=== PATIENT | male | born 1955 | race Caucasian/White ===

== ENCOUNTER → 2017-03-08 | Outpatient (CLI) | payer OTHER ==
[2017-03-08 11:01] LABS: ALBUMIN 4.1 GM/DL (3.2-5.2); ALBUMIN/GLOBULIN RATIO 1.21 (1.00-1.93); BILIRUBIN,TOTAL 0.9 MG/DL (0.2-1.0); CALCIUM LEVEL 9.1 MG/DL (8.8-10.2); CREATININE FOR GFR 1.57 MG/DL (0.70-1.30); GLOMERULAR FILTRATION RATE 48.2 (>49); POTASSIUM SERUM 3.9 MEQ/L (3.5-5.1); TOTAL PROTEIN 7.5 GM/DL (6.4-8.2)
== END ==
LOC: M LAB 09:40
PROVIDERS: ATTEND Physician Assistant
DX: R73.01 Impaired fasting glucose (principal)

== ENCOUNTER → 2017-05-17 | Outpatient (CLI) | payer OTHER ==
--- NOTE | 2017-05-17 12:00 | REP ---
Clinical: Chronic medical renal disease. Technique: Real time sauer scale and color evaluation using curved array transducer. Findings: Right kidney measures 12.6 x 5.5 x 6.2 cm and is normal in reniform shape with increased parenchymal echogenicity, increased central sinus fat, and scattered cysts measuring up to 16 mm in the lower pole. Findings are consistent with chronic medical renal disease and there is no evidence for hydronephrosis, nephrolithiasis, or mass lesion. Left kidney measures 10.5 x 5.6 x 5.8 cm and is normal in reniform shape with increased parenchymal echogenicity, increased central sinus fat, and scattered cysts measuring up to 11 mm in the mid pole region. Findings are consistent with chronic medical renal disease and there is no evidence for hydronephrosis or nephrolithiasis. A 1.7 x 2.0 x 1.6 cm echogenic lesion in the mid/upper pole region is concerning for mass versus normal parenchymal contour abnormality. Prostate gland measures 4.7 x 4.6 x 3.6 cm (41 ml). Impression: 1. Evidence for chronic medical renal disease with few bilateral cysts and no evidence for hydronephrosis. 2. Possible 2 cm left renal mass warrants pre and postcontrast CT or MRI for further investigation. Signed by Jitendra Patino MD 05/17/2017 11:52 A
== END ==
LOC: M RAD 10:36
PROVIDERS: ATTEND Internal Medicine Nephrology
DX: N18.3 Chronic kidney disease, stage 3 (moderate) (principal); I12.9 Hypertensive chronic kidney disease with stage 1 through stage 4 chronic kidney disease, or unspecified chronic kidney disease

== ENCOUNTER → 2017-05-31 | Outpatient (CLI) | payer OTHER ==
[~2017-05-31] MED LIST: ISOVUE-370 76% 100ML VIAL (Q9967) As Ordered ONE
--- NOTE | 2017-05-31 13:53 | REP ---
CT abdomen pelvis multiphasic scanning: Study is initially performed without IV contrast. This is performed by multiphase scanning after IV contrast, initially during the arterial phase of enhancement and later during the delayed equilibrium phase of enhancement. Comparisons are the renal ultrasound dated 05/17/[address] dated 12/10/2013. There is a 2 cm mass arising from the mid pole of the left kidney anterolaterally extending through the renal cortex into the subcapsular space, similar to the recent ultrasound, but not present on the previous CT dated 12/10/2013. Renal carcinoma is a primary diagnostic consideration. Follow-up is recommended. There are no other solid renal masses. There are a few small renal cortical cysts. There is no hydronephrosis. There are no renal calculi. The ureters are unremarkable. There is no bladder mass. The prostate is moderately enlarged and effaces the bladder base. The visualized lung ascencio are unremarkable. There are a few small hepatic cyst. Hepatic parenchyma is otherwise unremarkable. The gallbladder, pancreas and spleen are unremarkable. The adrenals and abdominal aorta are unremarkable. There is no retroperitoneal adenopathy. There is descending colon and sigmoid colon diverticulosis without diverticulitis. This is unchanged. Pelvis: The bladder is unremarkable except that the bas is mildly effaced by the slightly enlarged prostate. There is no adenopathy or ascites. There are no lytic, blastic or destructive skeletal changes. There is advanced degenerative disc disease in the lumbar spine at L5 S1. Impression: There is a 2 cm solid mass arising from the left kidney supero laterally extending through the renal cortex into the subcapsular space concerning for renal neoplasm. There is no adenopathy or ascites. No lytic, blastic or destructive skeletal lesions. No bladder mass. No hydronephrosis. There is descending colon and sigmoid colon diverticulosis without diverticulitis. The prostate is mildly enlarged and effaces the bladder base. Bilateral renal cortical cysts are incidentally noted. Signed by Brandon Canseco MD 05/31/2017 01:42 P
== END ==
LOC: M RAD 11:24
PROVIDERS: ATTEND Internal Medicine Nephrology
DX: D41.02 Neoplasm of uncertain behavior of left kidney (principal); R31.29 Other microscopic hematuria; K57.30 Diverticulosis of large intestine without perforation or abscess without bleeding; N40.1 Benign prostatic hyperplasia with lower urinary tract symptoms; N28.1 Cyst of kidney, acquired
CPT/HCPCS: 74178; Q9967

== ENCOUNTER → 2017-08-15 | Outpatient (CLI) | payer OTHER ==
[~2017-08-15] MED LIST changes: +ATOR1TAB19 PO; +BENT10CA PO; +DIAZ2TAB PO; +GABA-282 PO; -ISOVUE-370 76% 100ML VIAL (Q9967) As Ordered ONE; +LEXA1TAB PO; +LOSA100T8 PO; +OMEP40CA2 PO; +OXYC1TAB23 PO; +TIZA4CAP3 PO
[2017-08-15 11:03] LABS: INR 0.93
--- NOTE | 2017-08-16 06:17 | REP ---
CHEST X-RAY: CLINICAL: Preoperative assessment. Renal mass. TECHNIQUE: PA and lateral. COMPARISON: 04/28/2014. FINDINGS: Mediastinum and cardiac silhouette are normal. Lung ascencio demonstrate chronic appearing interstitial change. No focal consolidation, effusion or pneumothorax. Skeletal structures are intact. IMPRESSION: No acute cardiopulmonary process or focal consolidation. Signed by Jitendra Patino MD 08/21/2017 12:07 A
--- NOTE | 2017-08-16 09:14 | ECGEPIP ---
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
== END ==
LOC: M LAB 09:37
PROVIDERS: ATTEND Urology
DX: R31.29 Other microscopic hematuria (principal)

== ENCOUNTER 2017-08-16 05:44 | Inpatient (IN) | payer OTHER ==
[2017-08-16] VITALS (11 sets, daily range): BP systolic 129–144; BP diastolic 78–94
[~2017-08-16] VITALS: Ht 175.3 cm; Wt 83.8 kg
[2017-08-16] MEDS ORDERED: LR 1,000 ML IV SCH ×2 (06:00→12:15)
[2017-08-16] MEDS ORDERED: LIDOCAINE 1% SDV INJ 30 ML VIAL As Ordered ONE (07:03)
[2017-08-16] MEDS ORDERED: BUPIVACAINE HCL 0.25% 30 ML VIAL As Ordered ONE (07:03)
[2017-08-16] MEDS ORDERED: ROCURONIUM BROMIDE 50 MG/5 ML VIAL As Ordered ONE ×2 (07:12→08:09)
[2017-08-16] MEDS ORDERED: fentaNYL 100 MCG/2 ML INJECTION (J3010) As Ordered ONE ×2 (07:12→08:08)
[2017-08-16] MEDS ORDERED: PROPOFOL 200 MG/20 ML VIAL As Ordered ONE ×2 (07:12→08:09)
[2017-08-16] MEDS ORDERED: MIDAZOLAM INJ 2 MG/2 ML VIAL (J2250) As Ordered ONE (07:13)
[2017-08-16] MEDS: NS 1,000 ML IV SCH ×3 (07:41→22:14)
[2017-08-16] MEDS ORDERED: ONDANSETRON 4MG/2ML VIAL (J2405) IV PRN ×2 (07:45→12:15)
[2017-08-16] MEDS ORDERED: ACETAMINOPHEN TAB 650MG DOSE (2X325MG) PO PRN (07:45)
[2017-08-16] MEDS ORDERED: dexameTHASONE 4 MG/ML 1ML VIAL (J1100) As Ordered ONE (08:24)
[2017-08-16] MEDS ORDERED: MANNITOL 25% 12.5 GM/50 ML VIAL (J2150) As Ordered ONE (08:43)
[2017-08-16] MEDS ORDERED: ePHEDrine SULFATE 25 MG/5 ML(5MG/ML) SYRINGE As Ordered ONE (08:50)
[2017-08-16] MEDS ORDERED: FILTER 1.2 MICRON EXT SET (ADULT TPN & MANNITOL) XX ONE (09:24)
[2017-08-16] MEDS ORDERED: ONDANSETRON 4MG/2ML VIAL (J2405) As Ordered ONE (09:56)
[2017-08-16] MEDS ORDERED: NEOSTIGMINE 10 MG/10 ML VIAL (J2710) As Ordered ONE (09:56)
[2017-08-16] MEDS ORDERED: GLYCOPYRROLATE INJ 0.2 MG/ML 2 ML VIAL As Ordered ONE (09:56)
[2017-08-16] MEDS ORDERED: HYDROmorphone HCL 2 MG/ML 1ML VIAL (J1170) As Ordered ONE (09:56)
[2017-08-16] MEDS ORDERED: HYDROmorphone HCL 1 MG/ML SYRINGE (J1170) IV PRN (12:15)
[2017-08-16] MEDS ORDERED: PERCOCET 5MG/325MG TAB PO PRN (12:15)
[2017-08-16] MEDS: fentaNYL 100 MCG/2 ML INJECTION (J3010) IV PRN ×3 (12:20→12:38)
[2017-08-16 12:33] LABS: MEAN CORPUSCULAR HEMOGLOBIN 30.6 pg (27.0-33.0); MEAN CORPUSCULAR HGB CONC 33.2 g/dl (32.0-36.5); PLATELET COUNT, AUTOMATED 266 10^3/uL (150-450); RED CELL DISTRIBUTION WIDTH 13.6 % (11.5-14.5); WHITE BLOOD COUNT 16.3 10^3/uL (4.0-10.0)
--- NOTE | 2017-08-16 12:36 | ROOPDOC ---
[facility] Report Of Operation Report of Operation DATE OF PROCEDURE: 08/16/17 PREPROCEDURE DIAGNOSIS: Left renal mass. POSTPROCEDURE DIAGNOSIS: Left renal mass. PROCEDURE: Left robotic assisted laparoscopic partial nephrectomy with renal exploration and intraoperative ultrasound for tumor mapping. SURGEON: Arlene Gregg MD SKID MACHINE OPERATOR: Kalyn Mar NP ANESTHESIA: General. OPERATIVE INDICATIONS: This is a 62-year-old male who was found recently on CAT scan to have an approximately 2 cm enhancing left renal mass. Options for management were discussed, and he elected to undergo the above-listed procedure for treatment. DESCRIPTION OF PROCEDURE: The patient was brought to the operating room where general anesthesia was induced. Prophylactic antibiotics were infused. A Coppola catheter was then placed under sterile conditions. He was then placed in the right lateral decubitus position and secured to the table with tape. All pressure points were appropriately padded. He was then prepped and draped in the usual sterile fashion. Initial incision was for a 12 mm port along the lateral rectus margin in line with the 11th rib. After incision was made, the Veress needle was utilized to achieve pneumoperitoneum. A 12 mm port was inserted through this incision. Next, the camera was inserted and there were no apparent injuries from either Veress needle placement or initial trocar placement. The remainder of the ports were then placed under direct vision, including a 12 mm general office assistant port just distal to the camera port. Two robotic ports were placed with one of them between the anterior superior iliac spine and umbilicus and the other one just off the costal margin. In addition, a 5 mm port was placed midway between the camera port and the left hand robotic port. After all the ports were placed, the robot was then docked. We began by mobilizing the left colon off of Gerota's fascia. The spleen was dissected away from Gerota's fascia. At this point I located the gonadal vein and dissected in proximally up to the renal vein. Just posterior to the vein the main renal artery was seen. The artery was carefully dissected. Next anesthesia administered 12.5g of mannitol IV. The kidney was mobilized within Gerota's fascia. At this point, the tumor was located on the superior aspect of the kidney. Intraoperative ultrasound was performed to notate the margins of the tumor. We then placed a vascular clamp on the artery and it appeared that there was adequate vascular control. The tumor was then dissected using cold scissors. Upon dissecting the tumor it was apparent that there was still arterial inflow. I decided to quickly excise the tumor at this point. After the tumor was completely excised, we then performed the renorrhaphy. This was first performed using a #2-0 Vicryl suture and these were utilized to suture the deeper portion of the renal defect. Upon placement of these sutures, the bleeding stopped. After that point, we used an #0 Vicryl suture to reapproximate the renal capsule. Both of these sutures were cinched down using Weck clips. After these sutures were placed, hemostasis appeared excellent. Yoel was placed in the tumor bed. The tumor was then placed in an Endo Catch bag for future retrieval. Next, we removed the right hand robotic instrument and inserted a J-P drain in through that port site. This drain was placed just anterior to the left kidney. Once that was done, the robot was undocked. We then sutured the J-P drain in place using a #3-0 Ethilon suture. We then utilized the Pipo-Skip fascia closure device to place an #0 Vicryl free tie through the fascia of the 12 mm camera port site. Next, the incision of the 12 mm general office assistant port site was extended and the tumor was removed through it. The fascia of the extraction incision was then closed with a running #o Vicryl suture. Once that was done, all the remaining ports were removed under direct vision. There was no bleeding seen. The previously placed #0 Vicryl free tie was then tied down. All the wounds were then thoroughly irrigated. After that was done, each incision was closed with running #4-0 Monocryl subcuticular suture. Once all the incisions were closed, Dermabond was applied and local anesthetic was applied. This marked conclusion of the procedure. The patient was then awakened from anesthesia and then transported to the recovery room in stable condition. Estimated blood loss: 800 mL. Complications: None. Specimen: Left renal mass, fat overlying tumor. Percent Normal Kidney Spared: Approximately 90%. Warm Ischemia Time: 45 minutes. Plan: The patient will be admitted to the hospital postoperatively. He will be observed and will ultimately be discharged home once his kidney function is stable, his pain is controlled with oral pain medication and he is tolerating a regular diet. ARLENE GREGG MD Aug 16, 2017 12:36
[2017-08-16 12:47] LABS: ANION GAP 8 MEQ/L (8-16); BLOOD UREA NITROGEN 21 MG/DL (7-18); CALCIUM LEVEL 8.5 MG/DL (8.8-10.2); CARBON DIOXIDE LEVEL 30 MEQ/L (21-32); CHLORIDE LEVEL 103 MEQ/L (98-107); CREATININE FOR GFR 1.23 MG/DL (0.70-1.30); GLOMERULAR FILTRATION RATE > 60.0 (>49); GLUCOSE, FASTING 142 MG/DL (80-110); POTASSIUM SERUM 3.6 MEQ/L (3.5-5.1); SODIUM LEVEL 141 MEQ/L (136-145)
[2017-08-16] MEDS: OMEPRAZOLE 20 MG CAP PO SCH (13:51)
[2017-08-16] MEDS: PERCOCET 5MG/325MG TAB PO PRN ×2 (13:52→17:19)
[2017-08-16] MEDS: MORPHINE 2 MG/ML 1ML SYRINGE IV PRN ×3 (15:46→20:50)
[2017-08-16] MEDS: tiZANidine 4 MG TAB PO SCH ×2 (15:46→20:50)
[2017-08-16] MEDS: GABAPENTIN 300 MG CAP PO SCH ×2 (15:46→20:50)
[2017-08-16] MEDS: CEFAZOLIN SOD 1 GM in APPROPRIATE DILUENT 1 EA IV SCH ×2 (15:47→23:57)
[2017-08-16] MEDS ORDERED: MORPHINE 2 MG/ML 1ML SYRINGE IV ONE (18:30)
[2017-08-16] MEDS ORDERED: oxyBUTYnin 5 MG TAB PO ONE (19:00)
[2017-08-16] MEDS: ESCITALOPRAM OXALATE 10 MG TAB (LEXAPRO) PO SCH (20:50)
[2017-08-16] MEDS: DOCUSATE SODIUM 100 MG CAP PO SCH (20:50)
[2017-08-16] MEDS: ATORVASTATIN 10 MG TAB PO SCH (20:50)
[2017-08-17] MEDS: PERCOCET 5MG/325MG TAB PO PRN ×5 (00:10→22:06)
[2017-08-17 02:00] VITALS: BP 120/84
[2017-08-17] MEDS: NS 1,000 ML IV SCH (05:34)
[2017-08-17 06:00] VITALS: BP 130/85
[2017-08-17 06:38] LABS: MEAN CORPUSCULAR HEMOGLOBIN 30.8 pg (27.0-33.0); MEAN CORPUSCULAR HGB CONC 33.8 g/dl (32.0-36.5); MEAN CORPUSCULAR VOLUME 91.4 fl (80.0-96.0); PLATELET COUNT, AUTOMATED 237 10^3/uL (150-450); RED CELL DISTRIBUTION WIDTH 13.6 % (11.5-14.5); WHITE BLOOD COUNT 14.3 10^3/uL (4.0-10.0)
[2017-08-17 06:53] LABS: ANION GAP 7 MEQ/L (8-16); BLOOD UREA NITROGEN 20 MG/DL (7-18); CALCIUM LEVEL 8.1 MG/DL (8.8-10.2); CARBON DIOXIDE LEVEL 28 MEQ/L (21-32); CHLORIDE LEVEL 105 MEQ/L (98-107); CREATININE FOR GFR 1.14 MG/DL (0.70-1.30); GLOMERULAR FILTRATION RATE > 60.0 (>49); GLUCOSE, FASTING 109 MG/DL (80-110); POTASSIUM SERUM 4.1 MEQ/L (3.5-5.1); SODIUM LEVEL 140 MEQ/L (136-145)
[2017-08-17] MEDS: DOCUSATE SODIUM 100 MG CAP PO SCH ×2 (09:21→20:46)
[2017-08-17] MEDS: tiZANidine 4 MG TAB PO SCH ×3 (09:21→20:46)
[2017-08-17] MEDS: OMEPRAZOLE 20 MG CAP PO SCH (09:21)
[2017-08-17] MEDS: GABAPENTIN 300 MG CAP PO SCH ×3 (09:21→20:46)
[2017-08-17] MEDS: hydroCHLOROthiazide 12.5 MG CAPSULE PO SCH (09:22)
[2017-08-17] MEDS: LOSARTAN 50 MG TAB PO SCH (09:22)
[2017-08-17 10:00] VITALS: BP 129/82
--- NOTE | 2017-08-17 10:20 | IPNPDOC ---
Assessment/Plan Date Seen The patient was seen on 08/17/17. Patient Summary This is a 62 y/o M POD1 s/p left robotic partial nephrectomy. Doing well this am. Hb stable at 10.7. Cr stable at 1.1. Good UOP. Plan/VTE VTE Prophylaxis Ordered?: Yes VTE Exclusion Mechanical Proph: N/A:VTE Prophy Ordered Plan/Urinary Catheter Urinary Catheter: D/C Morley Plan - d/c morley - decrease IVF - d/c bedrest and ambulate - continue home meds - percocet and morphine prn pain - strict I/Os - SCDs - regular diet - anticipate discharge home tomorrow if pain better controlled Subjective Review oF Systems Chief Complaint The patient is a 62-year-old male admitted with a reason for visit of Renal Mass. Events since Last Encounter No acute events o/n. Pain better controlled this morning. No n/v. No f/c/ns. Objective Physical Examination General Exam: Alert, Cooperative, No Acute Distress ABDOMEN EXAM: Soft, Tenderness (appropriately tender), Other (incisions clean/ dry/intact; ISA w/ serosanguinous output) Skin Exam: Nl turgor and temperature Neuro Exam: Normal Speech Psych Exam: Mental status NL Other physical findings catheter draining clear urine Vital Signs/I&O Vital Signs Date Time Temp Pulse Resp B/P (MAP) Pulse Ox O2 Delivery O2 Flow Rate FiO2 08/17/17 09:22 130/85 08/17/17 06:30 14 08/17/17 06:00 98.5 74 99 Nasal Cannula 2.0 Laboratory Data Labs 24H Laboratory Tests 2 08/16/17 12:04: Nucleated Red Blood Cells % (auto) 0.0, Anion Gap 8, Glomerular Filtration Rate > 60.0, Blood Urea Nitrogen 21H, Creatinine 1.23, Sodium Level 141, Potassium Level 3.6, Chloride Level 103, Carbon Dioxide Level 30, Calcium Level 8.5L 08/17/17 06:21: Nucleated Red Blood Cells % (auto) 0.0, Anion Gap 7L, Glomerular Filtration Rate > 60.0, Blood Urea Nitrogen 20H, Creatinine 1.14, Sodium Level 140, Potassium Level 4.1, Chloride Level 105, Carbon Dioxide Level 28, Calcium Level 8.1L CBC/BMP Laboratory Tests 08/16/17 12:04 Red Blood Count 3.89 L, Mean Corpuscular Volume 92.0, Mean Corpuscular Hemoglobin 30.6, Mean Corpuscular Hemoglobin Concent 33.2, Red Cell Distribution Width 13.6, Calcium Level 8.5 L 08/17/17 06:21 Red Blood Count 3.47 L, Mean Corpuscular Volume 91.4, Mean Corpuscular Hemoglobin 30.8, Mean Corpuscular Hemoglobin Concent 33.8, Red Cell Distribution Width 13.6, Calcium Level 8.1 L ARLENE GREGG MD Aug 17, 2017 10:20
[2017-08-17 15:00] VITALS: BP 93/58
[2017-08-17 16:30] VITALS: BP 129/80
[2017-08-17] MEDS: MORPHINE 2 MG/ML 1ML SYRINGE IV PRN (18:36)
[2017-08-17] MEDS: ATORVASTATIN 10 MG TAB PO SCH (20:46)
[2017-08-17] MEDS: ESCITALOPRAM OXALATE 10 MG TAB (LEXAPRO) PO SCH (20:46)
[2017-08-17 22:00] VITALS: BP 133/80
[2017-08-18] VITALS (8 sets, daily range): BP systolic 92–128; BP diastolic 52–77
[2017-08-18] MEDS: NS 1,000 ML IV SCH (02:50)
[2017-08-18] MEDS: PERCOCET 5MG/325MG TAB PO PRN ×5 (02:50→19:50)
[2017-08-18 07:15] LABS: MEAN CORPUSCULAR HEMOGLOBIN 31.3 pg (27.0-33.0); PLATELET COUNT, AUTOMATED 239 10^3/uL (150-450); RED CELL DISTRIBUTION WIDTH 13.6 % (11.5-14.5); WHITE BLOOD COUNT 13.9 10^3/uL (4.0-10.0)
[2017-08-18 07:35] LABS: ANION GAP 5 MEQ/L (8-16); BLOOD UREA NITROGEN 16 MG/DL (7-18); CALCIUM LEVEL 8.6 MG/DL (8.8-10.2); CARBON DIOXIDE LEVEL 30 MEQ/L (21-32); CHLORIDE LEVEL 102 MEQ/L (98-107); CREATININE FOR GFR 1.12 MG/DL (0.70-1.30); GLOMERULAR FILTRATION RATE > 60.0 (>49); GLUCOSE, FASTING 99 MG/DL (80-110); SODIUM LEVEL 137 MEQ/L (136-145)
[2017-08-18] MEDS: DOCUSATE SODIUM 100 MG CAP PO SCH ×2 (08:33→20:13)
[2017-08-18] MEDS: OMEPRAZOLE 20 MG CAP PO SCH (08:33)
[2017-08-18] MEDS: tiZANidine 4 MG TAB PO SCH ×3 (08:33→20:13)
[2017-08-18] MEDS: hydroCHLOROthiazide 12.5 MG CAPSULE PO SCH (08:33)
[2017-08-18] MEDS: GABAPENTIN 300 MG CAP PO SCH ×3 (08:33→20:13)
[2017-08-18] MEDS: LOSARTAN 50 MG TAB PO SCH (08:33)
--- NOTE | 2017-08-18 11:14 | IPNPDOC ---
Assessment/Plan Date Seen The patient was seen on 08/18/17. Patient Summary This is a 62 y/o M POD2 s/p left robotic partial nephrectomy. His Hb is stable. Cr 1.1. Good UOP. Minimal ISA output. Still having trouble w/ pain control. Plan/VTE VTE Prophylaxis Ordered?: Yes VTE Exclusion Mechanical Proph: N/A:VTE Prophy Ordered Plan - d/c ISA drain - d/c IVF - percocet and morphine prn pain - continue home meds - strict I/Os - SCDs - incentive spirometry - regular diet - possible discharge home when pain controlled only w/ PO pain meds Subjective Review oF Systems Chief Complaint The patient is a 62-year-old male admitted with a reason for visit of Renal Mass. Events since Last Encounter No acute events o/n. Still having trouble w/ pain control. No n/v. No flatus yet. Tolerating diet. No f/c/ns. Objective Physical Examination General Exam: Alert, Cooperative, No Acute Distress ABDOMEN EXAM: Soft, Tenderness (appropriately tender), Other (incisions clean/ dry/intact; ISA w/ serosanguinous output) Skin Exam: Nl turgor and temperature Neuro Exam: Normal Speech Psych Exam: Mental status NL Vital Signs/I&O Vital Signs Date Time Temp Pulse Resp B/P (MAP) Pulse Ox O2 Delivery O2 Flow Rate FiO2 08/18/17 10:30 18 08/18/17 08:33 109/77 08/18/17 06:00 98.9 78 92 Room Air 08/17/17 06:00 2.0 I&O- Last 24 Hours up to 6 AM 08/19/17 06:00 Intake Total 675 ml Output Total 310 ml Balance 365 ml Laboratory Data Labs 24H Laboratory Tests 2 08/18/17 06:29: Nucleated Red Blood Cells % (auto) 0.0, Anion Gap 5L, Glomerular Filtration Rate > 60.0, Blood Urea Nitrogen 16, Creatinine 1.12, Sodium Level 137, Potassium Level 4.0, Chloride Level 102, Carbon Dioxide Level 30, Calcium Level 8.6L CBC/BMP Laboratory Tests 08/18/17 06:29 Red Blood Count 3.39 L, Mean Corpuscular Volume 92.0, Mean Corpuscular Hemoglobin 31.3, Mean Corpuscular Hemoglobin Concent 34.0, Red Cell Distribution Width 13.6, Calcium Level 8.6 L ARLENE GREGG MD Aug 18, 2017 11:14
[2017-08-18] MEDS: ATORVASTATIN 10 MG TAB PO SCH (20:13)
[2017-08-18] MEDS: ESCITALOPRAM OXALATE 10 MG TAB (LEXAPRO) PO SCH (20:13)
[2017-08-19] MEDS: PERCOCET 5MG/325MG TAB PO PRN (00:19)
[2017-08-19 02:00] VITALS: BP 115/76
[2017-08-19 06:00] VITALS: BP 119/76
[2017-08-19 07:01] LABS: MEAN CORPUSCULAR HEMOGLOBIN 30.7 pg (27.0-33.0); MEAN CORPUSCULAR HGB CONC 33.6 g/dl (32.0-36.5); MEAN CORPUSCULAR VOLUME 91.4 fl (80.0-96.0); PLATELET COUNT, AUTOMATED 225 10^3/uL (150-450); RED CELL DISTRIBUTION WIDTH 13.1 % (11.5-14.5); WHITE BLOOD COUNT 10.4 10^3/uL (4.0-10.0)
[2017-08-19 07:12] LABS: ANION GAP 9 MEQ/L (8-16); BLOOD UREA NITROGEN 15 MG/DL (7-18); CALCIUM LEVEL 8.6 MG/DL (8.8-10.2); CARBON DIOXIDE LEVEL 28 MEQ/L (21-32); CHLORIDE LEVEL 100 MEQ/L (98-107); GLOMERULAR FILTRATION RATE > 60.0 (>49); GLUCOSE, FASTING 106 MG/DL (80-110); POTASSIUM SERUM 3.7 MEQ/L (3.5-5.1); SODIUM LEVEL 137 MEQ/L (136-145)
[2017-08-19] MEDS: MORPHINE 2 MG/ML 1ML SYRINGE IV PRN (07:55)
--- NOTE | 2017-08-19 08:27 | IPNPDOC ---
Assessment/Plan Date Seen The patient was seen on 08/19/17. Patient Summary This is a 62 y/o M POD3 s/p left robotic partial nephrectomy. His Hb is stable. Cr 1.2. Good UOP. Pain a little better controlled. Plan/VTE VTE Prophylaxis Ordered?: Yes VTE Exclusion Mechanical Proph: N/A:VTE Prophy Ordered Plan - continue percocet prn pain - continue home meds - strict I/Os - ambulate - plan discharge home today Subjective Review oF Systems Chief Complaint The patient is a 62-year-old male admitted with a reason for visit of Renal Mass. Events since Last Encounter No acute events o/n. Patient still noting moderate abdominal pain, controlled mainly w/ percocet. No n/v. Tolerating diet. Passing flatus. No f/c/ns. Objective Physical Examination General Exam: Alert, Cooperative, No Acute Distress ABDOMEN EXAM: Soft, Tenderness (appropriately tender), Other (incisions clean/ dry/intact) Skin Exam: Nl turgor and temperature Neuro Exam: Normal Speech Psych Exam: Mental status NL Vital Signs/I&O Vital Signs Date Time Temp Pulse Resp B/P (MAP) Pulse Ox O2 Delivery O2 Flow Rate FiO2 08/19/17 07:55 18 08/19/17 06:00 98.2 75 119/76 (90) 94 Room Air 08/17/17 06:00 2.0 I&O- Last 24 Hours up to 6 AM 08/20/17 06:00 Intake Total 180 ml Output Total 0 ml Balance 180 ml Laboratory Data Labs 24H Laboratory Tests 2 08/19/17 06:29: Nucleated Red Blood Cells % (auto) 0.0, Anion Gap 9, Glomerular Filtration Rate > 60.0, Blood Urea Nitrogen 15, Creatinine 1.20, Sodium Level 137, Potassium Level 3.7, Chloride Level 100, Carbon Dioxide Level 28, Calcium Level 8.6L CBC/BMP Laboratory Tests 08/19/17 06:29 Red Blood Count 3.48 L, Mean Corpuscular Volume 91.4, Mean Corpuscular Hemoglobin 30.7, Mean Corpuscular Hemoglobin Concent 33.6, Red Cell Distribution Width 13.1, Calcium Level 8.6 L ARLENE GREGG MD Aug 19, 2017 08:27
[2017-08-19] MEDS: DOCUSATE SODIUM 100 MG CAP PO SCH (08:36)
[2017-08-19] MEDS: GABAPENTIN 300 MG CAP PO SCH (08:36)
[2017-08-19] MEDS: hydroCHLOROthiazide 12.5 MG CAPSULE PO SCH (08:36)
[2017-08-19 08:37] VITALS: BP 119/76
[2017-08-19] MEDS: OMEPRAZOLE 20 MG CAP PO SCH (08:37)
[2017-08-19] MEDS: tiZANidine 4 MG TAB PO SCH (08:37)
[2017-08-19] MEDS: LOSARTAN 50 MG TAB PO SCH (08:37)
[2017-08-19 10:00] VITALS: BP 116/73
--- NOTE | 2017-08-21 19:29 | DSES ---
DATE OF ADMISSION: 08/16/2017 DATE OF DISCHARGE: 08/19/2017 ADMISSION DIAGNOSIS: Left renal mass. DISCHARGE DIAGNOSES: Left renal cell carcinoma. ADMITTING PHYSICIAN: Tien Chow MD DISCHARGING PHYSICIAN: Tien Chow MD PROCEDURES PERFORMED: Left robotic-assisted laparoscopic partial nephrectomy. HISTORY OF PRESENT ILLNESS: This is a 62-year-old male who was brought to the hospital for the above-listed procedure and was admitted postoperatively. HOSPITALIZATION COURSE: The patient's hospitalization course was remarkable only for difficult to control postoperative pain. Of note the patient has a history of chronic back pain and therefore is on narcotic pain medications at home, which made him require higher doses of pain medication for surgical pain. His blood work throughout his hospital stay was within normal limits. His creatinine remained stable at about 1.1. He made excellent urine output. By postoperative day three, he was tolerating a regular diet and was ambulating well. His pain was better controlled with oral pain medications at this point. His Porfirio-Warren drain had been removed and his Coppola catheter was removed. He was voiding without difficulty. He was therefore deemed ready for discharge home on postoperative day three in good condition. He will followup in the clinic in approximately one week to discuss the pathology results. FRANCISCO
== END 2017-08-19 11:50 | disposition home or self-care (01) | DRG 442 ==
LOC: M OR 05:44 → M MS5PR 13:48
PROVIDERS: ADMIT Urology; ATTEND Urology
PROC: 8E0W4CZ Robotic Assisted Procedure of Trunk Region, Percutaneous Endoscopic Approach (ICD-10-PCS; 2017-08-16)
PROC: 0TB14ZZ Excision of Left Kidney, Percutaneous Endoscopic Approach (ICD-10-PCS; principal; 2017-08-16 07:30)
DX: C64.2 Malignant neoplasm of left kidney, except renal pelvis (principal)

== ENCOUNTER → 2018-04-05 | Outpatient (CLI) | payer OTHER ==
[~2018-04-05] MED LIST changes: -ATOR1TAB19 PO; -BENT10CA PO; -DIAZ2TAB PO; -GABA-282 PO; +ISOVUE-370 76% 100ML VIAL (Q9967) As Ordered; -LEXA1TAB PO; -LOSA100T8 PO; -OMEP40CA2 PO; -OXYC1TAB23 PO; -TIZA4CAP3 PO
== END ==
LOC: M RAD 07:24
DX: C64.2 Malignant neoplasm of left kidney, except renal pelvis (principal)
CPT/HCPCS: Q9967

== ENCOUNTER → 2018-11-05 | Outpatient (CLI) | payer OTHER ==
[~2018-11-05] MED LIST changes: +ATOR1TAB19 PO; +BENT10CA PO; +DIAZ2TAB PO; +GABA-843 PO; -ISOVUE-370 76% 100ML VIAL (Q9967) As Ordered; +LEXA1TAB PO; +LOSA100T8 PO; +OMEP40CA2 PO; +OXYC1TAB23 PO; +TIZA4CAP PO
[2018-11-05 10:09] LABS: APPEARANCE, URINE CLEAR (CLEAR); BACTERIA, URINE AUTO NEGATIVE (NEGATIVE); BILIRUBIN, URINE AUTO NEGATIVE (NEGATIVE); BLOOD, URINE BLOOD NEGATIVE (NEGATIVE); COLOR, URINE YELLOW (YELLOW); GLUCOSE, URINE (UA) AUTO NEGATIVE (NEGATIVE); KETONE, URINE AUTO NEGATIVE (NEGATIVE); LEUKOCYTE ESTERASE, URINE AUTO NEGATIVE (NEGATIVE); MUCUS, URINE SMALL (NEGATIVE); NITRITE, URINE AUTO NEGATIVE (NEGATIVE); PROTEIN, URINE AUTO NEGATIVE (NEGATIVE); RBC, URINE AUTO 0 /HPF (0-3); SPECIFIC GRAVITY URINE AUTO 1.019 (1.002-1.035); SQUAMOUS EPITHELIAL CELL UR AU 2 /HPF (0-6); UROBILINOGEN, URINE AUTO 0.2 mg/dL (0.0-2.0); WBC, URINE AUTO 2 /HPF (0-3)
[2018-11-05 10:10] LABS: BASO % 0.7 % (0.0-1.0); EOS # 0.2 10^3/uL (0.0-0.50); EOS % 2.5 % (0.0-3.0); HEMATOCRIT 43.5 % (42.0-52.0); HEMOGLOBIN 14.7 g/dl (13.5-17.5); LYMPH # 1.6 10^3/uL (1.5-4.5); LYMPH % 26.8 % (24.0-44.0); MEAN CORPUSCULAR HEMOGLOBIN 30.8 pg (27.0-33.0); MEAN CORPUSCULAR HGB CONC 33.8 g/dl (32.0-36.5); MEAN CORPUSCULAR VOLUME 91.2 fl (80.0-96.0); MONO # 0.5 10^3/uL (0.0-0.8); MONO % 7.9 % (0.0-5.0); NEUTROPHILS # 3.7 10^3/uL (1.8-7.7); NEUTROPHILS % 61.9 % (36.0-66.0); PLATELET COUNT, AUTOMATED 260 10^3/uL (150-450); RED BLOOD COUNT 4.77 10^6/uL (4.30-6.10); WHITE BLOOD COUNT 5.9 10^3/uL (4.0-10.0)
[2018-11-05 10:39] LABS: MALB URINE SIEMENS 20.4 MG/L; MAU/CREAT RATIO 11.5 MCG/MG (0.0-30.0)
[2018-11-05 10:43] LABS: ALBUMIN 3.6 GM/DL (3.2-5.2); ALT/SGPT 30 U/L (12-78); BILIRUBIN,TOTAL 0.6 MG/DL (0.2-1.0); BLOOD UREA NITROGEN 24 MG/DL (7-18); CARBON DIOXIDE LEVEL 29 MEQ/L (21-32); CHLORIDE LEVEL 103 MEQ/L (98-107); CHOLESTEROL LEVEL 183 MG/DL (<200); CHOLESTEROL RISK RATIO 3.978 (<5); CREATININE FOR GFR 1.26 MG/DL (0.70-1.30); FREE T4 0.84 NG/DL (0.76-1.46); GLOMERULAR FILTRATION RATE > 60.0 (>49); GLUCOSE, FASTING 96 MG/DL (70-100); HDL CHOLESTEROL 46 MG/DL (>40); LDL CHOLESTEROL 86 MG/DL (<100); NON-HDL-C 137 MG/DL; POTASSIUM SERUM 4.4 MEQ/L (3.5-5.1); SODIUM LEVEL 138 MEQ/L (136-145); THYROID STIMULATING HORMONE 0.451 uIU/ML (0.358-3.740); TOTAL PROTEIN 7.1 GM/DL (6.4-8.2); TRIGLYCERIDES LEVEL 253 MG/DL (<150)
[2018-11-05 11:53] LABS: TOTAL 25(OH) VITAMIN D 19.8 NG/ML (30.0-100.0)
== END ==
LOC: M LAB 09:11
PROVIDERS: ATTEND Physician Assistant
DX: Z12.5 Encounter for screening for malignant neoplasm of prostate (principal); I10 Essential (primary) hypertension; E78.00 Pure hypercholesterolemia, unspecified; E78.5 Hyperlipidemia, unspecified; F34.1 Dysthymic disorder; E78.2 Mixed hyperlipidemia; E87.6 Hypokalemia; C64.2 Malignant neoplasm of left kidney, except renal pelvis; E55.9 Vitamin D deficiency, unspecified

== ENCOUNTER → 2019-07-29 | Outpatient (CLI) | payer OTHER ==
[~2019-07-29] MED LIST changes: +ISOVUE-370 76% 100ML VIAL (Q9967) As Ordered ONE; -OMEP40CA2 PO; +OMEP40CA97 PO
--- NOTE | 2019-07-29 18:30 | REP ---
REASON FOR EXAM: History of renal cell carcinoma. COMPARISON: 04/18/2018. FINDINGS: The superior mediastinal structures are midline. The cardiac silhouette is unremarkable in size, shape, and position. The diaphragmatic surfaces of the lungs are regular, and the costophrenic angles are clear. The pulmonary ascencio are clear. The imaged osseous structures are intact. IMPRESSION: There is no acute cardiopulmonary disease. No change from the prior exam. If clinical suspicion is high due to the patient's history of renal cell cancer then a contrast enhanced CT examination of the chest is more sensitive. Electronically Signed by Tor Reese DO 07/29/2019 06:58 P
[2019-07-29 18:31] LABS: CALCIUM LEVEL 9.4 MG/DL (8.8-10.2); CREATININE FOR GFR 1.38 MG/DL (0.70-1.30); GLOMERULAR FILTRATION RATE 55.4 (>49); POTASSIUM SERUM 3.9 MEQ/L (3.5-5.1)
--- NOTE | 2019-07-30 09:05 | REP ---
CT abdomen with IV contrast: History: Renal cell carcinoma. Comparison abdominal CT study April 05, 2018. May 31, 2017 study is also reviewed. CT contrast dose: 100 ml of intravenous Isovue 370. CT findings: Preliminary digital crown buffer radiograph shows an unremarkable bowel gas pattern. There is mild linear fibrosis in the lingula and right middle lobe at the lung bases. Lung bases are otherwise clear. The liver and the spleen are normal in size. There is mild diffuse fatty infiltration of the liver. There is a tiny subcentimeter cyst in the right lobe. This is unchanged from the 2017 prior study. No significant focal liver lesion is seen. There is a tiny stable nodule in the right adrenal gland unchanged from the 2069 study consistent with adenoma. No pancreatic abnormality is observed. The gallbladder is unremarkable. The spleen is homogeneous. There is a cyst in the lower pole right kidney which measures 2.4 cm in greatest diameter. There is another cortical cyst in the right kidney measuring 0.8 cm in diameter. Both of these are in the lower pole. The larger right lower pole cyst measured 18 mm in greatest diameter in 2017. The patient is status post partial nephrectomy at mid pole level in the left kidney. There is postoperative fibrosis adjacent to this. There is a peripheral cortical cyst projecting laterally from the left mid kidney. This measures 16 mm in diameter. This cyst measured 6 mm 2017 and 9 mm on April 05, 2018. There is no evidence of recurrent renal mass lesion. No regional adenopathy is seen. The left main renal artery demonstrates a focal stenosis approximately 1 cm from its origin with post stenotic dilation. This is unchanged. Right renal artery is non-stenotic. No retroperitoneal mass or adenopathy is seen. There is left colonic diverticulosis without CT evidence of diverticulitis. No abdominal wall defect is seen. Visualized bony structures are unremarkable. Impression: Status post partial left nephrectomy unchanged. Bilateral renal cortical cysts. No evidence of recurrent mass or adenopathy. Evidence of focal stenosis in the left main renal artery with post stenotic dilation. Electronically Signed by Jevon Christopher MD 07/30/2019 03:31 P
== END ==
LOC: M RAD 16:48
PROVIDERS: ATTEND Urology
DX: C64.2 Malignant neoplasm of left kidney, except renal pelvis (principal)
CPT/HCPCS: 71046; 74160; 80048; Q9967

== ENCOUNTER → 2020-08-25 | Outpatient (CLI) | payer OTHER ==
[~2020-08-25] MED LIST changes: -ISOVUE-370 76% 100ML VIAL (Q9967) As Ordered ONE
--- NOTE | 2020-08-25 10:44 | REP ---
INDICATION: FREQUENCY OF URINATION AND RETENTION, US W/PVR. COMPARISON: None. TECHNIQUE: Real-time sonographic evaluation of urinary bladder performed. FINDINGS: The bladder measures 11.9 x 10.2 x 6.4 cm for total volume of 507 cc. Postvoid residual is 18 cc which is 4% of the original volume. No bladder wall mass is seen and there is no bladder wall thickening. There is no intraluminal calculus. The prostate measures 4.7 x 3.9 x 4.2 cm, total volume 40 cc. IMPRESSION: No bladder mass or calculus. Postvoid residual of 4%. <Electronically signed by Brandon Allen > 08/25/20 [id number]
== END ==
LOC: M RAD 09:46
PROVIDERS: ATTEND Internal Medicine Nephrology
DX: R35.0 Frequency of micturition (principal); R33.9 Retention of urine, unspecified

== ENCOUNTER → 2020-09-16 | Outpatient (CLI) | payer OTHER ==
[2020-09-16 09:56] LABS: BASO % 0.4 % (0.0-1.0); EOS # 0.1 10^3/uL (0.0-0.5); EOS % 0.6 % (0.0-3.0); HEMATOCRIT 46.5 % (42.0-52.0); LYMPH # 1.7 10^3/uL (1.5-5.0); MEAN CORPUSCULAR HEMOGLOBIN 29.2 pg (27.0-33.0); MEAN CORPUSCULAR HGB CONC 32.3 g/dl (32.0-36.5); MEAN CORPUSCULAR VOLUME 90.6 fl (80.0-96.0); MONO # 0.7 10^3/uL (0.0-0.8); MONO % 6.9 % (0.0-5.0); NEUTROPHILS # 7.3 10^3/uL (1.5-8.5); NEUTROPHILS % 74.7 % (36.0-66.0); PLATELET COUNT, AUTOMATED 329 10^3/uL (150-450); RED BLOOD COUNT 5.13 10^6/uL (4.30-6.10); WHITE BLOOD COUNT 9.7 10^3/uL (4.0-10.0)
[2020-09-16 10:41] LABS: ALBUMIN 3.7 GM/DL (3.2-5.2); ALT/SGPT 28 U/L (12-78); BILIRUBIN,TOTAL 0.6 MG/DL (0.2-1.0); BLOOD UREA NITROGEN 22 MG/DL (7-18); CALCIUM LEVEL 9.5 MG/DL (8.8-10.2); CARBON DIOXIDE LEVEL 28 MEQ/L (21-32); CHLORIDE LEVEL 107 MEQ/L (98-107); CHOLESTEROL LEVEL 252 MG/DL (<200); CHOLESTEROL RISK RATIO 4.846 (<5); CREATININE FOR GFR 1.16 MG/DL (0.70-1.30); FREE T4 0.89 NG/DL (0.76-1.46); GLOMERULAR FILTRATION RATE > 60.0 (>49); GLUCOSE, FASTING 114 MG/DL (70-100); HDL CHOLESTEROL 52 MG/DL (>40); LDL CHOLESTEROL 168 MG/DL (<100); NON-HDL-C 200 MG/DL; SODIUM LEVEL 139 MEQ/L (136-145); THYROID STIMULATING HORMONE 0.664 uIU/ML (0.358-3.740); TOTAL PROTEIN 7.4 GM/DL (6.4-8.2); TRIGLYCERIDES LEVEL 159 MG/DL (<150)
== END ==
LOC: M LAB 08:56
PROVIDERS: ATTEND Physician Assistant
DX: I10 Essential (primary) hypertension (principal); Z12.5 Encounter for screening for malignant neoplasm of prostate

== ENCOUNTER → 2020-11-02 | Outpatient (CLI) | payer OTHER ==
[~2020-11-02] MED LIST changes: +GABA-282 PO; -GABA-843 PO; +ISOVUE-370 76% 100ML VIAL As Ordered ONE
--- NOTE | 2020-11-02 18:12 | REP ---
INDICATION: RENAL CELL CARCINOMA. COMPARISON: 07/29/2019, 04/05/2018 TECHNIQUE: Bolus of 100 mL Isovue 370 scanning through the abdomen and delayed images than obtained. Coronal and sagittal reconstructions provided. FINDINGS: CT abdomen: The lung bases remain clear. There is no cardiomegaly, pericardial thickening or effusion I see no hiatal hernia. There is no hepatosplenomegaly, focal hepatic or splenic lesion nor intrahepatic biliary dilatation. Gallbladder without calcified stone or mass. Adrenal glands are normal and the pancreas without mass, ductal dilatation or inflammatory change adjacent. Small bowel loops in the abdomen proper are unremarkable. Abdominal portion of colon shows a few scattered diverticula in the left colon without diverticulitis or colitis. Study again shows changes of the partial nephrectomy lateral aspect interpolar upper pole region on the left. Exophytic cortical cyst just below this measures up to 2 cm, it was 1.4 cm on the prior study by my direct measurement small cortical cysts are also seen on the right. The largest right-sided cyst is in the lower pole at 2.4 cm, previously 1.9 cm. I do not see evidence for new solid mass or recurrence at the resection site. There is no hydronephrosis, hydroureter, renal or ureteral stone at this time. The aorta has calcifications but no aneurysm. No periaortic, retroperitoneal or mesenteric pathologic sized lymphadenopathy. There is no ascites or free air in the abdomen or pelvis. The bones are unchanged with some degenerative changes in endplates lumbar spine but no compression fracture or destructive lesion. No other new or significant findings nor interval changes. IMPRESSION: 1. Stable appearance of the lateral aspect interpolar upper pole left kidney after partial nephrectomy. No evidence of recurrence mass. 2. There are bilateral renal cortical cysts some the same FU larger but having simple cyst characteristics. No new or other significant finding. <Electronically signed by Edmond Alberto > 11/02/20 [id number]
== END ==
LOC: M RAD 14:59
PROVIDERS: ATTEND Urology
DX: N28.1 Cyst of kidney, acquired (principal)
CPT/HCPCS: 74160; Q9967

== ENCOUNTER → 2021-02-26 | Outpatient (CLI) | payer OTHER ==
[~2021-02-26] MED LIST changes: -ISOVUE-370 76% 100ML VIAL As Ordered ONE; +OMEP40CA4 PO; -OMEP40CA97 PO
== END ==
LOC: M LAB 08:43
PROVIDERS: ATTEND Physician Assistant
DX: R73.01 Impaired fasting glucose (principal)

== ENCOUNTER → 2021-05-14 | Outpatient (REF) | payer MEDICARE, OTHER | LOC: M LAB REF 13:03 | PROVIDERS: ATTEND Internal Medicine Nephrology | DX: E83.42 Hypomagnesemia (principal) ==

== ENCOUNTER 2021-07-01 08:13 | Emergency (ER) | payer MEDICARE, OTHER ==
[~2021-07-01] VITALS: Ht 175.3 cm; Wt 191.0 kg
[2021-07-01] MEDS ORDERED: AMLO1TAB24 PO (08:31)
[2021-07-01 09:34] LABS: BASO % 0.8 % (0.0-1.0); HEMATOCRIT 44.3 % (42.0-52.0); HEMOGLOBIN 14.6 g/dl (13.5-17.5); LYMPH # 1.1 10^3/uL (1.5-5.0); LYMPH % 27.6 % (24.0-44.0); MEAN CORPUSCULAR HEMOGLOBIN 29.7 pg (27.0-33.0); MONO # 0.8 10^3/uL (0.0-0.8); MONO % 19.8 % (2.0-8.0); NEUTROPHILS % 50.5 % (36.0-66.0); PLATELET COUNT, AUTOMATED 252 10^3/uL (150-450); RED BLOOD COUNT 4.92 10^6/uL (4.30-6.10)
--- NOTE | 2021-07-01 09:39 | REP ---
INDICATION: Chest pain. COMPARISON: 07/29/2019. TECHNIQUE: Single portable AP view of the chest was performed. FINDINGS: There is no acute infiltrate or pulmonary edema. There is mild linear bibasilar fibro atelectatic change.. The heart is not significantly enlarged. The mediastinal silhouette is unremarkable. The visualized osseous structures are intact. IMPRESSION: No acute pulmonary disease. <Electronically signed by Brandon Allen > 07/01/21 [id number]
[2021-07-01 10:07] LABS: ALBUMIN 3.3 GM/DL (3.2-5.2); ALT/SGPT 27 U/L (12-78); BILIRUBIN,TOTAL 0.2 MG/DL (0.2-1.0); BLOOD UREA NITROGEN 20 MG/DL (7-18); CALCIUM LEVEL 8.6 MG/DL (8.8-10.2); CARBON DIOXIDE LEVEL 28 MEQ/L (21-32); CHLORIDE LEVEL 105 MEQ/L (98-107); CK-MB VALUE MASS < 1.0 NG/ML (<3.6); CPK CREATINE PHOSPHOKINASE 66 U/L (39-308); CREATININE FOR GFR 1.45 MG/DL (0.70-1.30); GLUCOSE, FASTING 121 MG/DL (70-100); MB/CK RELATIVE INDEX 1.52 (< OR =4); POTASSIUM SERUM 3.7 MEQ/L (3.5-5.1); SODIUM LEVEL 139 MEQ/L (136-145); TROPONIN I < 0.02 NG/ML (< 0.10)
[2021-07-01 13:14] VITALS: BP 141/97
[2021-07-01 13:42] LABS: CK-MB VALUE MASS < 1.0 NG/ML (<3.6); CPK CREATINE PHOSPHOKINASE 63 U/L (39-308); MB/CK RELATIVE INDEX 1.59 (< OR =4); TROPONIN I < 0.02 NG/ML (< 0.10)
--- NOTE | 2021-07-01 19:03 | ECGEPIP ---
[facility] - ED Test Date: 2021-07-01 Pat Name: FABIANA JENSEN Department: Room: - Gender: Male [employer] Officer: JIHAN : 1955 Requested By: FAINA De La Rosa Order Number: [id number] Reading MD: Harriet Franco Measurements Intervals [place] Rate: 73 P: 15 AK: 186 QRS: 26 QRSD: 86 T: 38 QT: 368 QTc: 405 Interpretive Statements Normal sinus rhythm increased rate 08/15/17 Electronically Signed on 07-01-2021 19:03:37 EDT by Harriet Franco
== END 2021-07-01 13:16 | disposition home or self-care (01) ==
LOC: M ED 08:13
DX: R07.89 Other chest pain (principal); U07.1 COVID-19; I10 Essential (primary) hypertension; E78.5 Hyperlipidemia, unspecified; Z85.528 Personal history of other malignant neoplasm of kidney; Z79.899 Other long term (current) drug therapy

== ENCOUNTER 2021-07-02 09:01 | Emergency (ER) | payer MEDICARE, OTHER ==
[~2021-07-02] VITALS: Ht 175.3 cm; Wt 87.0 kg
[2021-07-02 09:01] VITALS: BP 148/114
[~2021-07-02 09:01] MED LIST changes: +AMLO1TAB24 PO
[2021-07-02 13:09] LABS: BASO % 0.6 % (0.0-1.0); EOS % 0.4 % (0.0-3.0); HEMATOCRIT 49.4 % (42.0-52.0); HEMOGLOBIN 16.4 g/dl (13.5-17.5); LYMPH # 1.2 10^3/uL (1.5-5.0); LYMPH % 23.9 % (24.0-44.0); MEAN CORPUSCULAR HEMOGLOBIN 29.5 pg (27.0-33.0); MEAN CORPUSCULAR HGB CONC 33.2 g/dl (32.0-36.5); MEAN CORPUSCULAR VOLUME 88.8 fl (80.0-96.0); MONO # 0.8 10^3/uL (0.0-0.8); MONO % 14.6 % (2.0-8.0); NEUTROPHILS # 3.1 10^3/uL (1.5-8.5); NEUTROPHILS % 60.3 % (36.0-66.0); PLATELET COUNT, AUTOMATED 259 10^3/uL (150-450); RED BLOOD COUNT 5.56 10^6/uL (4.30-6.10); WHITE BLOOD COUNT 5.2 10^3/uL (4.0-10.0)
== END 2021-07-02 15:06 | disposition home or self-care (01) ==
LOC: M ED 09:01
DX: U07.1 COVID-19 (principal); I10 Essential (primary) hypertension; F41.9 Anxiety disorder, unspecified; Z79.899 Other long term (current) drug therapy; Z86.69 Personal history of other diseases of the nervous system and sense organs; Z87.19 Personal history of other diseases of the digestive system
CPT/HCPCS: 80047; 85025; 99283; M0245

== ENCOUNTER 2021-07-02 14:30 | Outpatient (CLI) | payer MEDICARE, OTHER ==
[~2021-07-02] VITALS: Ht 175.3 cm; Wt 87.0 kg
--- NOTE | 2021-07-02 13:37 | HPEPDOC ---
[facility] Medical History & Physical Date of Admission Jul 02, 2021 Date of Service: Jul 02, 2021 History and Physical Chief complaint: Who presented back to the ER for monoclonal antibodies History of present illness: Patient is a 66-year-old male with a PMHx of HTN, DLP, Anxiety, Chronic back pain, Diverticulosis and GERD who presented to the ER for monoclonal antibodies. Patient was here in the ER the day prior, 07/01 with complaints of chest pain. He was found to be COVID19 positive. EKGs and cardiac markers completed which was unrevealing. Patient was advised that he shouldve monoclonal antibodies. However, he went home to think about it. He presents now after he is admitted decision. Patient denies any chest pain, SOB or palpitations. He does report a dry cough. Denies any N/V, abdominal pain, C/D or urinary discomfort. Denies any recent fevers or chills. Reports appetite is normal without any significant changes in his weight. Patient has not received her vaccine for COVID19 because he reports he was skiddish Past Medical History: HTN DLP Anxiety Chronic back pain Diverticulosis GERD Past Surgical History: Colonoscopy 1-2 years ago Left partial nephrectomy Tonsillectomy Appendectomy Allergies: See below Medications: See below Family History: - Reviewed and noncontributory Social History: - Denies the use of alcohol, tobacco or illicit drugs - Denies recent travel or sick contacts - Lives with in [place] - Occupation; currently on disability Review of Systems: 10 point review of systems complete, all negative otherwise stated in HPI Physical exam: - Vitals: BP [148/114], HR [93], RR [16], Sat [98%RA], Temp [98.0F] - General: Lying in bed, No acute distress, Speaking in full sentences, AAOx3 - HEENT: NC, AT, PERRLA - CVS: RRR, +S1S2, - Murmurs / rubs / gallops - Lungs: Fair air entry bilaterally, No appreciable wheezing / rales / rhonchi - Abdomen: Soft, Non-distended, Non-tender - Extremities: No lower extremity edema, No calf tenderness - Neuro: No focal motor or sensory deficit - Skin: No visible rashes Labs: See below Imaging: CXR 07/01: No acute pulmonary disease. EKG: See below Assessment and Plan: COVID19 - Patient presented to the ER today after he admitted decision for monoclonal antibodies - He presented to the ER yesterday for chest pain - Currently patient is asymptomatic - He is saturating well on room air - Imaging completed yesterday. Has been negative - Patient has consented for monoclonal antibodies; discussed risks/benefits HTN - BP well controlled - c/w Losatan / HCTZ / Amlodipine DLP - c/w Atorvastatin Anxiety / Mood disorder - c/w Diazepam / Escitalopram Chronic back pain - c/w Tizanidine / Gabapentin / Percocet IBS - c/w Dicyclomine PRN Diverticulosis GERD - c/w Omeprazole DVT prophylaxis - Will c/w early ambulation Home Medications Scheduled Amlodipine Besylate (Amlodipine Besylate) 5 Mg Tablet, 1 TAB PO BID Atorvastatin Calcium (Atorvastatin Calcium) 10 Mg Tab, 10 MG PO DAILY Dicyclomine Hcl (Bentyl) 10 Mg Cap, 20 MG PO QID Escitalopram Oxalate (Lexapro) 10 Mg Tab, 10 MG PO DAILY Gabapentin (Gabapentin) 300 Mg Cap, 300 MG PO TID Losartan/Hydrochlorothiazide (Losartan-Hctz 100-12.5 mg Tab) 1 Tab Tab, 1 TAB PO DAILY Omeprazole (Omeprazole) 40 Mg Cap, 40 MG PO DAILY Tizanidine HCl (Tizanidine HCl) 4 Mg Cap, 4 MG PO TID Scheduled PRN Diazepam (Diazepam) 2 Mg Tab, 2 MG PO DAILYPRN PRN for ANXIETY/AGITATION Oxycodone HCl/Acetaminophen (Oxycodone-Acetaminophen 5-325) 1 Tab Tab, 1 TAB PO Q6HP PRN for PAIN Allergies Coded Allergies: No Known Allergies (Unverified , 08/16/17) LOIDA WESLEY MD Jul 02, 2021 13:37
[~2021-07-02 14:30] MED LIST changes: +ACETAMINOPHEN TAB 650MG DOSE (2X325MG) PO PRN; +ALBUTEROL 90 MCG/ACT 8GM HFA INHALER INH PRN; +ALBUTEROL SULFATE 2.5 MG/0.5 ML INH NEB SOLN INH PRN; +EPINEPHrine INJ 1 MG/ML 1ML AMP IM PRN; +NS 1,000 ML IV SCH; +diphenhydrAMINE 50MG/ML VIAL (J1200) IV PRN; +methylPREDNISolone 125MG 2ML VIAL IV PRN
[2021-07-02 15:40] VITALS: BP 140/96
[2021-07-02] MEDS ORDERED: BAMLANIVIMAB 700 MG, ETESEVIMAB 1,400 MG in NS 250 ML IV ONE (16:00)
[2021-07-02 16:10] VITALS: BP 128/85
[2021-07-02 16:42] VITALS: BP 134/81
[2021-07-02 17:43] VITALS: BP 144/87
== END 2021-07-02 17:45 | disposition home or self-care (01) ==
LOC: M OPCLI4PR 14:30
PROVIDERS: ATTEND Internal Medicine
DX: U07.1 COVID-19 (principal)

== ENCOUNTER → 2021-08-30 | Outpatient (CLI) | payer MEDICARE, OTHER ==
[~2021-08-30] MED LIST changes: -ACETAMINOPHEN TAB 650MG DOSE (2X325MG) PO PRN; -ALBUTEROL 90 MCG/ACT 8GM HFA INHALER INH PRN; -ALBUTEROL SULFATE 2.5 MG/0.5 ML INH NEB SOLN INH PRN; -EPINEPHrine INJ 1 MG/ML 1ML AMP IM PRN; -NS 1,000 ML IV SCH; -diphenhydrAMINE 50MG/ML VIAL (J1200) IV PRN; -methylPREDNISolone 125MG 2ML VIAL IV PRN
[2021-08-30 09:18] LABS: BASO % 0.6 % (0.0-1.0); EOS # 0.2 10^3/uL (0.0-0.5); HEMOGLOBIN 15.2 g/dl (13.5-17.5); LYMPH # 2.1 10^3/uL (1.5-5.0); LYMPH % 31.2 % (24.0-44.0); MEAN CORPUSCULAR HEMOGLOBIN 29.8 pg (27.0-33.0); MEAN CORPUSCULAR VOLUME 90.2 fl (80.0-96.0); MONO # 0.6 10^3/uL (0.0-0.8); MONO % 9.3 % (2.0-8.0); NEUTROPHILS # 3.7 10^3/uL (1.5-8.5); NEUTROPHILS % 55.6 % (36.0-66.0); PLATELET COUNT, AUTOMATED 314 10^3/uL (150-450); WHITE BLOOD COUNT 6.6 10^3/uL (4.0-10.0)
[2021-08-30 09:24] LABS: MALB URINE SIEMENS 27.6 MG/L; MAU/CREAT RATIO 20.5 MCG/MG (0.0-30.0)
[2021-08-30 09:34] LABS: HEMOGLOBIN A1c 5.9 %
[2021-08-30 09:57] LABS: ALBUMIN 3.6 GM/DL (3.2-5.2); BILIRUBIN,TOTAL 0.3 MG/DL (0.2-1.0); CALCIUM LEVEL 9.4 MG/DL (8.8-10.2); CHOLESTEROL RISK RATIO 3.134 (<5); CREATININE FOR GFR 1.37 MG/DL (0.70-1.30); FREE T4 1.03 NG/DL (0.76-1.46); GLOMERULAR FILTRATION RATE 55.5 (>49); MAGNESIUM LEVEL 1.9 MG/DL (1.8-2.4); POTASSIUM SERUM 4.5 MEQ/L (3.5-5.1); PROSTATIC SPECIFIC AG MONITOR 1.27 NG/ML (< 4.00); THYROID STIMULATING HORMONE 0.66 uIU/ML (0.358-3.740); TOTAL PROTEIN 7.5 GM/DL (6.4-8.2)
[2021-08-30 10:12] LABS: TOTAL 25(OH) VITAMIN D 21.9 NG/ML (30.0-100.0)
== END ==
LOC: M LAB 08:12
PROVIDERS: ATTEND Physician Assistant
DX: Z12.5 Encounter for screening for malignant neoplasm of prostate (principal); I10 Essential (primary) hypertension; E78.5 Hyperlipidemia, unspecified; Z79.899 Other long term (current) drug therapy; E55.9 Vitamin D deficiency, unspecified

== ENCOUNTER → 2021-10-31 | Outpatient (CLI) | payer MEDICARE, OTHER ==
[2021-10-31 09:34] LABS: CALCIUM LEVEL 9.4 MG/DL (8.8-10.2); CREATININE FOR GFR 1.4 MG/DL (0.70-1.30); GLOMERULAR FILTRATION RATE 54.1 (>49); POTASSIUM SERUM 4.6 MEQ/L (3.5-5.1)
== END ==
LOC: M LAB 08:20
PROVIDERS: ATTEND Urology
DX: C64.2 Malignant neoplasm of left kidney, except renal pelvis (principal)

== ENCOUNTER 2021-11-17 12:44 | Emergency (ER) | payer MEDICARE, OTHER ==
[~2021-11-17] VITALS: Ht 175.3 cm; Wt 88.5 kg
[2021-11-17 12:45] VITALS: BP 133/90
[2021-11-17] MEDS ORDERED: DICY10CA13 (12:50)
== END 2021-11-17 23:59 | disposition home or self-care (01) ==
LOC: M ED 12:44
DX: M79.661 Pain in right lower leg (principal); I10 Essential (primary) hypertension; F41.9 Anxiety disorder, unspecified; G89.29 Other chronic pain; Z86.16 Personal history of COVID-19; Z86.19 Personal history of other infectious and parasitic diseases; Z85.528 Personal history of other malignant neoplasm of kidney

== ENCOUNTER → 2022-03-18 | Outpatient (CLI) | payer OTHER ==
[~2022-03-18] MED LIST changes: +DICY10CA13
[2022-03-18 08:35] LABS: HEMOGLOBIN A1c 5.7 %
[2022-03-18 08:55] LABS: ALBUMIN 3.5 GM/DL (3.2-5.2); BILIRUBIN,TOTAL 0.4 MG/DL (0.2-1.0); CALCIUM LEVEL 9.6 MG/DL (8.8-10.2); CHOLESTEROL RISK RATIO 3.25 (<5); CREATININE FOR GFR 1.33 MG/DL (0.70-1.30); GLOMERULAR FILTRATION RATE 57.4 (>49); MAGNESIUM LEVEL 1.8 MG/DL (1.8-2.4); POTASSIUM SERUM 3.8 MEQ/L (3.5-5.1); THYROID STIMULATING HORMONE 1.05 uIU/ML (0.358-3.740)
[2022-03-18 10:04] LABS: TOTAL 25(OH) VITAMIN D 34.3 NG/ML (30.0-100.0)
== END ==
LOC: M LAB 07:37
PROVIDERS: ATTEND Physician Assistant
DX: I10 Essential (primary) hypertension (principal); E55.9 Vitamin D deficiency, unspecified; E78.5 Hyperlipidemia, unspecified

== ENCOUNTER → 2023-07-01 | Outpatient (CLI) | payer MEDICARE ==
[~2023-07-01] MED LIST changes: +DICY-61; -DICY10CA13
[2023-07-04 12:53] LABS: CREATININE FOR GFR 1.37 MG/DL (0.57-1.00); GLOMERULAR FILTRATION RATE 55.2 (>59); POTASSIUM SERUM 3.8 mmol/L (3.5-5.2)
[2023-07-04 12:54] LABS: BILIRUBIN,TOTAL 0.3 MG/DL (0.0-1.2); CHOLESTEROL RISK RATIO 2.903 (<5); LDL CHOLESTEROL 76.6 MG/DL (<100); TOTAL PROTEIN 7.5 G/DL (6.0-8.5)
[2023-07-04 12:55] LABS: ALBUMIN 4.6 G/DL (3.9-4.9); MAGNESIUM LEVEL 1.9 MG/DL (1.6-2.3); THYROID STIMULATING HORMONE 1.23 uIU/ML (0.450-4.500); TOTAL 25(OH) VITAMIN D 34.6 NG/ML (30-100)
== END ==
LOC: M LAB 10:04
PROVIDERS: ATTEND Physician Assistant
DX: N18.9 Chronic kidney disease, unspecified (principal); I12.9 Hypertensive chronic kidney disease with stage 1 through stage 4 chronic kidney disease, or unspecified chronic kidney disease; K21.9 Gastro-esophageal reflux disease without esophagitis; Z79.899 Other long term (current) drug therapy

== ENCOUNTER → 2024-02-02 | Outpatient (CLI) | payer MEDICARE ==
[2024-02-02 11:22] LABS: APPEARANCE, URINE CLEAR (CLEAR); BACTERIA, URINE AUTO NEGATIVE (NEGATIVE); BILIRUBIN, URINE AUTO NEGATIVE (NEGATIVE); BLOOD, URINE BLOOD NEGATIVE (NEGATIVE); COLOR, URINE YELLOW (YELLOW); GLUCOSE, URINE (UA) AUTO NEGATIVE (NEGATIVE); KETONE, URINE AUTO NEGATIVE (NEGATIVE); LEUKOCYTE ESTERASE, URINE AUTO NEGATIVE (NEGATIVE); MUCUS, URINE SMALL (NEGATIVE); NITRITE, URINE AUTO NEGATIVE (NEGATIVE); PROTEIN, URINE AUTO 1+ mg/dL (NEGATIVE); RBC, URINE AUTO 1 /HPF (0-3); SPECIFIC GRAVITY URINE AUTO 1.014 (1.002-1.035); SQUAMOUS EPITHELIAL CELL UR AU 0 /HPF (0-6); UROBILINOGEN, URINE AUTO 0.2 mg/dL (0.0-2.0); WBC, URINE AUTO 0 /HPF (0-3)
[2024-02-02 11:54] LABS: ALBUMIN 3.6 G/DL (3.2-5.2); BILIRUBIN,TOTAL 0.7 MG/DL (0.3-1.2); CALCIUM LEVEL 9.6 MG/DL (8.3-10.6); CHOLESTEROL RISK RATIO 3.29 (<5); CREATININE FOR GFR 1.33 MG/DL (0.70-1.30); GLOMERULAR FILTRATION RATE 57.1 (>49); HDL CHOLESTEROL 38.6 MG/DL (>40); LDL CHOLESTEROL 60.4 MG/DL (<100); MAGNESIUM LEVEL 1.8 MG/DL (1.8-2.4); NON-HDL-C 88.4 MG/DL; POTASSIUM SERUM 3.5 MMOL/L (3.5-5.1); THYROID STIMULATING HORMONE 3.083 uIU/ML (0.55-4.78); TOTAL 25(OH) VITAMIN D 55.3 NG/ML (20.0-100.0)
[2024-02-02 14:35] LABS: CREATININE, URINE 95.6 MG/DL; MAU/CREAT RATIO 67.9 MCG/MG (0.0-30.0)
== END ==
LOC: M WUC 08:47
PROVIDERS: ATTEND Physician Assistant
DX: E55.9 Vitamin D deficiency, unspecified (principal); I12.9 Hypertensive chronic kidney disease with stage 1 through stage 4 chronic kidney disease, or unspecified chronic kidney disease; N18.9 Chronic kidney disease, unspecified; Z79.899 Other long term (current) drug therapy

== ENCOUNTER → 2024-05-16 | Outpatient (CLI) | payer MEDICARE ==
[2024-05-16 14:25] LABS: BASO % 0.6 % (0.0-1.0); EOS # 0.1 10^3/uL (0.0-0.5); EOS % 1.2 % (0.0-3.0); HEMATOCRIT 43.3 % (42.0-52.0); HEMOGLOBIN 14.5 g/dl (13.5-17.5); LYMPH # 2.1 10^3/uL (1.5-5.0); LYMPH % 31.1 % (24.0-44.0); MEAN CORPUSCULAR HEMOGLOBIN 30.4 pg (27.0-33.0); MEAN CORPUSCULAR HGB CONC 33.5 g/dl (32.0-36.5); MEAN CORPUSCULAR VOLUME 90.8 fl (80.0-96.0); MONO # 0.7 10^3/uL (0.0-0.8); MONO % 10.9 % (2.0-8.0); NEUTROPHILS # 3.8 10^3/uL (1.5-8.5); NEUTROPHILS % 56.1 % (36.0-66.0); PLATELET COUNT, AUTOMATED 318 10^3/uL (150-450); RED BLOOD COUNT 4.77 10^6/uL (4.30-6.10); WHITE BLOOD COUNT 6.8 10^3/uL (4.0-10.0)
[2024-05-16 14:57] LABS: ALBUMIN 3.9 G/DL (3.2-5.2); BILIRUBIN,TOTAL 0.6 MG/DL (0.3-1.2); CALCIUM LEVEL 9.7 MG/DL (8.3-10.6); CHOLESTEROL RISK RATIO 3.12 (<5); CREATININE FOR GFR 1.3 MG/DL (0.70-1.30); GLOMERULAR FILTRATION RATE 58.4 (>49); HDL CHOLESTEROL 45.7 MG/DL (>40); LDL CHOLESTEROL 76.1 MG/DL (<100); MAGNESIUM LEVEL 1.6 MG/DL (1.8-2.4); NON-HDL-C 97.3 MG/DL; POTASSIUM SERUM 3.4 MMOL/L (3.5-5.1); PROSTATIC SPECIFIC AG MONITOR 1.03 NG/ML (< 4.00); TOTAL PROTEIN 7.3 G/DL (5.7-8.2)
[2024-05-16 14:58] LABS: HEMOGLOBIN A1c 6.3 % (4.0-6.0); TOTAL 25(OH) VITAMIN D 65.3 NG/ML (20.0-100.0)
== END ==
LOC: M WUC 08:57
PROVIDERS: ATTEND Physician Assistant
DX: I10 Essential (primary) hypertension (principal); E11.9 Type 2 diabetes mellitus without complications; N18.9 Chronic kidney disease, unspecified; E78.5 Hyperlipidemia, unspecified; E55.9 Vitamin D deficiency, unspecified; Z12.5 Encounter for screening for malignant neoplasm of prostate; Z79.899 Other long term (current) drug therapy

== ENCOUNTER → 2024-11-22 | Outpatient (CLI) | payer MEDICARE ==
[~2024-11-22] MED LIST changes: +GABA-1172 PO; -GABA-282 PO
[2024-11-22 14:09] LABS: APPEARANCE, URINE HAZY (CLEAR); BACTERIA, URINE AUTO 1+ (NEGATIVE); BILIRUBIN, URINE AUTO NEGATIVE (NEGATIVE); BLOOD, URINE BLOOD NEGATIVE (NEGATIVE); COLOR, URINE YELLOW (YELLOW); GLUCOSE, URINE (UA) AUTO NEGATIVE (NEGATIVE); KETONE, URINE AUTO NEGATIVE (NEGATIVE); LEUKOCYTE ESTERASE, URINE AUTO NEGATIVE (NEGATIVE); MUCUS, URINE SMALL (NEGATIVE); NITRITE, URINE AUTO NEGATIVE (NEGATIVE); PROTEIN, URINE AUTO 2+ mg/dL (NEGATIVE); RBC, URINE AUTO 1 /HPF (0-3); SPECIFIC GRAVITY URINE AUTO 1.015 (1.002-1.035); SQUAMOUS EPITHELIAL CELL UR AU 1 /HPF (0-6); UROBILINOGEN, URINE AUTO 0.2 mg/dL (0.0-2.0); WBC, URINE AUTO 0 /HPF (0-3)
[2024-11-22 14:32] LABS: CREATININE, URINE 82.4 MG/DL
[2024-11-22 14:33] LABS: MAU/CREAT RATIO 212.3 MCG/MG (0.0-30.0)
[2024-11-22 14:34] LABS: ALBUMIN 3.7 G/DL (3.2-5.2); BILIRUBIN,TOTAL 0.5 MG/DL (0.3-1.2); CALCIUM LEVEL 9.9 MG/DL (8.3-10.6); CHOLESTEROL RISK RATIO 3.08 (<5); CREATININE FOR GFR 1.31 MG/DL (0.70-1.30); GLOMERULAR FILTRATION RATE 57.9 (>49); HDL CHOLESTEROL 50.5 MG/DL (>40); LDL CHOLESTEROL 71.7 MG/DL (<100); MAGNESIUM LEVEL 1.8 MG/DL (1.8-2.4); NON-HDL-C 105.5 MG/DL; POTASSIUM SERUM 3.4 MMOL/L (3.5-5.1); TOTAL PROTEIN 7.7 G/DL (5.7-8.2)
[2024-11-22 14:36] LABS: THYROID STIMULATING HORMONE 1.508 uIU/ML (0.55-4.78); TOTAL 25(OH) VITAMIN D 30.9 NG/ML (20.0-100.0)
[2024-11-22 14:41] LABS: HEMOGLOBIN A1c 6.1 % (4.0-6.0)
== END ==
LOC: M WUC 08:14
PROVIDERS: ATTEND Physician Assistant
DX: N18.9 Chronic kidney disease, unspecified (principal); E11.22 Type 2 diabetes mellitus with diabetic chronic kidney disease; E78.5 Hyperlipidemia, unspecified; Z79.899 Other long term (current) drug therapy

== ENCOUNTER → 2025-06-03 | Outpatient (CLI) | payer MEDICARE, MEDICAID ==
[2025-06-03 13:13] LABS: APPEARANCE, URINE HAZY (CLEAR); BACTERIA, URINE AUTO NEGATIVE (NEGATIVE); BILIRUBIN, URINE AUTO NEGATIVE (NEGATIVE); BLOOD, URINE BLOOD NEGATIVE (NEGATIVE); GLUCOSE, URINE (UA) AUTO NEGATIVE (NEGATIVE); KETONE, URINE AUTO NEGATIVE (NEGATIVE); LEUKOCYTE ESTERASE, URINE AUTO NEGATIVE (NEGATIVE); MUCUS, URINE SMALL (NEGATIVE); NITRITE, URINE AUTO NEGATIVE (NEGATIVE); PROTEIN, URINE AUTO 1+ mg/dL (NEGATIVE); RBC, URINE AUTO 1 /HPF (0-3); SPECIFIC GRAVITY URINE AUTO 1.023 (1.002-1.035); SQUAMOUS EPITHELIAL CELL UR AU 3 /HPF (0-6); UROBILINOGEN, URINE AUTO 0.2 mg/dL (0.0-2.0); WBC, URINE AUTO 2 /HPF (0-3)
[2025-06-03 13:20] LABS: PLATELET COUNT, AUTOMATED 365 10^3/uL (150-450)
[2025-06-03 13:21] LABS: ALT/SGPT 49.0 U/L (7.0-40); AST/SGOT 32.0 U/L (<34); CALCIUM LEVEL 9.4 MG/DL (8.3-10.6); CARBON DIOXIDE LEVEL 28.0 MMOL/L (20-31); CHLORIDE LEVEL 102.0 MMOL/L (98-107); CHOLESTEROL LEVEL 159.0 MG/DL (<200); CHOLESTEROL RISK RATIO 3.27 (<5); CREATININE FOR GFR 1.47 MG/DL (0.70-1.30); FREE T4 1.12 NG/DL (0.89-1.76); GLOMERULAR FILTRATION RATE 51.3 (>49); LDL CHOLESTEROL 82.6 MG/DL (<100); NON-HDL-C 110.4 MG/DL; POTASSIUM SERUM 3.8 MMOL/L (3.5-5.1); SODIUM LEVEL 138.0 MMOL/L (136-145); TRIGLYCERIDES LEVEL 139.0 MG/DL (<150)
[2025-06-03 13:22] LABS: TOTAL 25(OH) VITAMIN D 33.1 NG/ML (20.0-100.0)
[2025-06-03 13:32] LABS: ESTIMATED AVERAGE GLUCOSE 126.0 MG/DL (60-110)
[2025-06-03 14:08] LABS: CREATININE, URINE 163.8 MG/DL; MALB URINE SIEMENS 133.0 MG/L; MAU/CREAT RATIO 81.1 MCG/MG (0.0-30.0)
== END ==
LOC: M WUC 08:09
PROVIDERS: ATTEND Physician Assistant
DX: N18.9 Chronic kidney disease, unspecified (principal); E07.9 Disorder of thyroid, unspecified